=== PATIENT | male | born 1965 | race Caucasian/White ===

== ENCOUNTER 2018-08-21 06:02 | Emergency (ER) | payer OTHER ==
[~2018-08-21] VITALS: Ht 175.3 cm; Wt 91.6 kg
[~2018-08-21 06:02] MED LIST: "\\\"ANTIBIOTIC\\\""; AZITHROMYCIN 2250 MG PO; CARAFATE 1 GM TA1 G1 PO; CIPROFLOXACIN500 M1 PO; PREDNISONE 20 M20 M1 PO; ZANTAC 150MG T150 MG PO
[2018-08-21] MEDS ORDERED: METFORMIN HCL850 MG PO (06:14)
[2018-08-21 06:28] LABS: ABSOLUTE EOSINOPHILS 0.2 thou/uL (0.0-0.7); ABSOLUTE LYMPHOCYTES 2.1 thou/uL (0.8-5.3); ABSOLUTE MONOCYTES 0.5 thou/uL (0.0-1.2); ABSOLUTE NEUTROPHILS 4.5 thou/uL (1.6-8.1); BASOPHILS 0.7 %; EOSINOPHILS 2.3 %; HEMATOCRIT 43.8 % (42.0-52.0); HEMOGLOBIN 14.8 gm/dL (14.0-18.0); LYMPHOCYTES 28.7 %; MCHC 33.7 g/dL (28.0-37.0); MCV 86.1 fL (80.0-100.0); MPV 9.2 fl. (7.2-11.1); NUCLEATED RBCS 0 /100WBC; PLATELET COUNT* 283 thou/uL (150-400); POLYS 61.3 %; RBC 5.09 mil/uL (4.50-6.00); RDW-CV 13.4 % (10.5-14.5); WBC 7.4 thou/uL (4.0-11.0)
[2018-08-21 06:37] LABS: CALCIUM 9.6 mg/dL (8.5-10.1); CREATININE 1.3 mg/dL (0.6-1.3); POTASSIUM 4.5 mmol/L (3.5-5.1)
[2018-08-21 06:42] LABS: ALBUMIN 3.7 g/dL (3.4-5.0); TOTAL BILIRUBIN 0.4 mg/dL (<0.1-1.0)
[2018-08-21] MEDS ORDERED: GLIPIZIDE 10 MG10 MG PO (06:58)
[2018-08-21] MEDS ORDERED: ZOFRAN ODT4 MG SUBLING (07:03)
[2018-08-21 07:05] VITALS: BP 156/93
== END 2018-08-21 07:06 | disposition home or self-care (01) ==
LOC: M.ERS 06:02
PROVIDERS: Family Medicine
DX: E11.9 Type 2 diabetes mellitus without complications (principal); R53.1 Weakness; R11.2 Nausea with vomiting, unspecified; K21.9 Gastro-esophageal reflux disease without esophagitis

== ENCOUNTER 2019-04-05 11:34 | Emergency (ER) | payer BC ==
[~2019-04-05] VITALS: Ht 172.7 cm; Wt 81.7 kg
[~2019-04-05 11:34] MED LIST changes: +GLIPIZIDE 10 MG10 MG PO; +METFORMIN HCL850 MG PO; +ZOFRAN ODT4 MG SUBLING
[2019-04-05 12:17] LABS: INFLUENZA A ANTIGEN Positive (Negative); INFLUENZA B ANTIGEN Negative (Negative)
[2019-04-05] MEDS ORDERED: TAMIFLU75 MG PO (12:33)
[2019-04-05] MEDS ORDERED: IBUPROFEN 800800 MG PO (12:33)
[2019-04-05 12:43] VITALS: BP 127/69
== END 2019-04-05 12:46 | disposition home or self-care (01) ==
LOC: M.ERS 11:34
PROVIDERS: Family Medicine
DX: J10.1 Influenza due to other identified influenza virus with other respiratory manifestations (principal); K21.9 Gastro-esophageal reflux disease without esophagitis; E11.9 Type 2 diabetes mellitus without complications

== ENCOUNTER 2020-04-06 14:17 | Emergency (ER) | payer BC ==
[~2020-04-06] VITALS: Ht 170.2 cm; Wt 93.0 kg
[~2020-04-06 14:17] MED LIST changes: +IBUPROFEN 800800 MG PO; +TAMIFLU75 MG PO
[2020-04-06] MEDS ORDERED: LIPITOR10 MG PO (14:24)
[2020-04-06] MEDS ORDERED: CARVEDILOL12.5 MG PO (14:24)
[2020-04-06 14:33] LABS: URINE BILIRUBIN NEGATIVE (Negative); URINE BLOOD TRACE (Negative); URINE CLARITY CLEAR; URINE COLOR YELLOW; URINE GLUCOSE-RANDOM NEGATIVE (Negative); URINE KETONES NEGATIVE (Negative); URINE LEUKOCYTES-REFLEX NEGATIVE (Negative); URINE NITRITE-REFLEX NEGATIVE (Negative); URINE PROTEIN NEGATIVE (Negative); URINE SPECIFIC GRAVITY >= 1.030 (1.005-1.030); URINE UROBILINOGEN 0.2 E.U./dl (0.2-1.0)
[2020-04-06 14:40] LABS: ABSOLUTE EOSINOPHILS 0.2 thou/uL (0.0-0.7); ABSOLUTE LYMPHOCYTES 2.6 thou/uL (0.8-5.3); ABSOLUTE MONOCYTES 0.6 thou/uL (0.0-1.2); ABSOLUTE NEUTROPHILS 4.2 thou/uL (1.6-8.1); BASOPHILS 0.4 %; EOSINOPHILS 2.1 %; HEMATOCRIT 40.9 % (42.0-52.0); HEMOGLOBIN 13.7 gm/dL (14.0-18.0); LYMPHOCYTES 34.2 %; MCHC 33.5 g/dL (28.0-37.0); MCV 86.7 fL (80.0-100.0); MONOCYTES 8.1 %; MPV 8.4 fl. (7.2-11.1); NUCLEATED RBCS 0 /100WBC; PLATELET COUNT* 253 thou/uL (150-400); POLYS 55.2 %; RBC 4.72 mil/uL (4.50-6.00); RDW-CV 13.1 % (10.5-14.5); WBC 7.7 thou/uL (4.0-11.0)
[2020-04-06 14:47] LABS: CALCIUM 8.9 mg/dL (8.5-10.1); POTASSIUM 3.8 mmol/L (3.5-5.1)
[2020-04-06 14:52] LABS: ALBUMIN 3.6 g/dL (3.4-5.0); TOTAL BILIRUBIN 0.2 mg/dL (<0.1-1.0); TOTAL PROTEIN 7.5 g/dL (6.4-8.2)
[2020-04-06] MEDS ORDERED: ONDANSETRON ODT4 MG PO (16:48)
[2020-04-06] MEDS ORDERED: OMEPRAZOLE 20 M20 M1 PO (16:48)
[2020-04-06 16:59] VITALS: BP 133/82
--- NOTE | 2020-04-07 13:58 | EKG ---
[place] [address] ELECTROCARDIOGRAM REPORT Name: SIDNEY PATEL SR Room: [facility]#: [id number] Admission: 04/06/20 Attend Phys: Discharge: 04/06/20 Date of : 69 Date of Service: 04/06/20 1509 Report #: [id number] THIS REPORT FOR: //name// [facility] ED Test Date: 2020-04-06 Test Time: 15:09:29 Pat Name: KIARAGRAZYNAMEI PATEL Department: Room: Gender: Integration Director: : [id number] Requested By: Meliton Young Order Number: [id number] MD: Donovan Flaherty Measurements Intervals [place] Rate: 68 P: 57 NC: 173 QRS: 24 QRSD: 94 T: 36 QT: 394 QTc: 420 Interpretive Statements Sinus rhythm ST elev, probable normal early repol pattern Baseline wander in lead(s) I Compared to ECG 12/04/2012 21:31:02 ST (T wave) deviation now present Electronically Signed On 04-07-2020 13:57:58 [employer] by Donovan Flaherty [email or web address] <ELECTRONICALLY SIGNED> By: Donovan Flaherty MD, [facility] 04/07/20 1357 1509 1509 Donovan Flaherty MD, [facility] /EPI
== END 2020-04-06 16:59 | disposition home or self-care (01) ==
LOC: M.ERS 14:17
PROVIDERS: Physician Assistant
DX: K21.9 Gastro-esophageal reflux disease without esophagitis (principal); E11.9 Type 2 diabetes mellitus without complications

== ENCOUNTER 2021-02-01 10:14 | Emergency (ER) | payer BC ==
[~2021-02-01] VITALS: Ht 172.7 cm; Wt 93.0 kg
[~2021-02-01 10:14] MED LIST changes: +CARVEDILOL12.5 MG PO; +LIPITOR10 MG PO; +OMEPRAZOLE 20 M20 M1 PO; +ONDANSETRON ODT4 MG PO
[2021-02-01] MEDS ORDERED: MEDROLDOSEPACK PO (12:14)
[2021-02-01] MEDS ORDERED: FLEXERIL PO (12:14)
[2021-02-01 12:41] VITALS: BP 174/95
== END 2021-02-01 12:42 | disposition home or self-care (01) ==
LOC: M.ERS 10:14
DX: M54.50 Low back pain, unspecified (principal); K21.9 Gastro-esophageal reflux disease without esophagitis; E11.9 Type 2 diabetes mellitus without complications; Z79.899 Other long term (current) drug therapy